=== PATIENT | female | born 1975 | race Caucasian/White ===

== ENCOUNTER 2016-03-05 16:02 | Emergency (ER) | payer SELFPAY ==
[~2016-03-05] VITALS: Ht 167.6 cm; Wt 104.0 kg
[2016-03-05 16:06] VITALS: Ht 167.6 cm; Wt 104.0 kg
[2016-03-05] MEDS ORDERED: HYDROCODONE/APAP (5/325) TAB PO ONE (16:30)
[2016-03-05 16:46] LABS: BASOPHIL # 0.1 10^3/ul (0.0-0.1); EOSINOPHILS # 0.2 10^3/ul (0.0-0.5); EOSINOPHILS % 2.7 % (0.0-7.0); HEMATOCRIT 28.5 % (37.0-47.0); LYMPHOCYTES # 1.9 10^3/ul (0.8-2.9); LYMPHOCYTES % 30.8 % (15.0-51.0); MEAN CORPUSCULAR HEMOGLOBIN 21.3 pg (29.0-33.0); MEAN CORPUSCULAR HGB CONC 31.4 g/dl (32.0-37.0); MEAN CORPUSCULAR VOLUME 67.8 fl (82.0-101.0); MEAN PLATELET VOLUME 9.1 fl (7.4-10.4); MONOCYTE # 0.8 10^3/ul (0.3-0.9); MONOCYTES % 13.2 % (0.0-11.0); NEUTROPHIL # 3.3 10^3/ul (1.6-7.5); NEUTROPHILS % 52.3 % (39.0-77.0); PLATELET COUNT 301 10^3/UL (140-440); RED BLOOD COUNT 4.21 10^6/ul (4.20-5.40); RED CELL DISTRIBUTION WIDTH 17.7 % (11.5-14.5); UNCORRECTED WBC 6.3 10^3/ul (4.8-10.8); WHITE BLOOD COUNT 6.3 10^3/ul (4.8-10.8)
[2016-03-05 16:52] LABS: CONDITION 1; LH ANALYZER COMMENTS 1
[2016-03-05 16:54] LABS: CHLORIDE 106 mmol/L (97-110); SODIUM 143 mmol/L (135-144)
[2016-03-05 16:55] LABS: POTASSIUM 4.1 mmol/L (3.5-5.1)
[2016-03-05 16:57] LABS: ALANINE AMINOTRANSFERASE 37 IU/L (13-69); ALBUMIN/GLOBULIN RATIO 1.17; ALKALINE PHOSPHATASE 61 IU/L (42-121); ANION GAP 15 (8-16); ASPARTATE AMINO TRANSFERASE 23 IU/L (15-46); BLOOD UREA NITROGEN 14 mg/dl (7-20); CALCIUM 8.6 mg/dl (8.4-10.2); CARBON DIOXIDE 26 mmol/L (21-31); CREATININE 0.71 mg/dl (0.44-1.00); GLUCOSE 77 mg/dl (70-220); TOTAL PROTEIN 7.4 g/dl (6.1-8.1)
--- NOTE | 2016-03-05 17:16 | ERD ---
ER Documentation Chief Complaint Date/Time DATE: 03/05/16 TIME: 17:15 Chief Complaint mild sob for the past 3 days. mild abd pain and gen body itching no rash HPI 40-year-old female otherwise healthy comes to the ER with right upper quadrant abdominal pain as well as shortness of breath. She states her right upper quadrant pain started, she 3 days ago, then she started to have shortness of breath. Abdominal pain is nonradiating, achy, localized to the right upper quadrant. She has not had any fever, chills, nausea, vomiting or diarrhea. ROS All systems reviewed and are negative except as per history of present illness. PMhx/Soc Medical and Surgical Hx: pt denies Medical Hx, pt denies Surgical Hx Hx Alcohol Use: Yes Hx Substance Use: Yes Hx Tobacco Use: Yes Smoking Status: Never smoker Physical Exam Vitals Vital Signs Date Time Temp Pulse Resp B/P Pulse Ox O2 Delivery O2 Flow Rate FiO2 03/05/16 16:06 98.2 95 20 172/59 99 Physical Exam General: Well-developed, well-nourished. The patient appears in no acute distress. HEENT: Head is normocephalic, atraumatic. No scleral icterus. Neck: Supple. Nontender. Lungs: Clear to auscultation. Normal air movement. Heart: Regular rate and rhythm. S1 and S2 are normal. No murmurs, gallops, or rubs. Abdomen: Soft, tender in right upper nondistended. Bowel sounds are normoactive. No guarding, peritoneal signs, no masses. Extremities: No clubbing or cyanosis. Normal pulses. Moving extremities x 4. No weakness. Neurologic: Alert and oriented 3. No focal deficits. Skin: Normal turgor. No rash or lesions. Result Diagram: 03/05/16 1630 03/05/16 1630 Results 24 hrs Laboratory Tests Test 03/05/16 16:30 03/05/16 16:45 Alanine Aminotransferase (ALT/SGPT) 37IU/L Albumin 4.0g/dl Albumin/Globulin Ratio 1.17 Alkaline Phosphatase 61IU/L Anion Gap 15 Aspartate Amino Transf (AST/SGOT) 23IU/L Basophils # 0.110^3/ul Basophils % 1.0% Blood Morphology Comment Blood Urea Nitrogen 14mg/dl Calcium Level 8.6mg/dl Carbon Dioxide Level 26mmol/L Chloride Level 106mmol/L Creatinine 0.71mg/dl Direct Bilirubin 0.00mg/dl Eosinophils # 0.210^3/ul Eosinophils % 2.7% Globulin 3.40g/dl Glucose Level 77mg/dl Hematocrit 28.5% Hemoglobin 9.0g/dl Indirect Bilirubin 0.0mg/dl Lipase 109U/L Lymphocytes # 1.910^3/ul Lymphocytes % 30.8% Mean Corpuscular Hemoglobin 21.3pg Mean Corpuscular Hemoglobin Concent 31.4g/dl Mean Corpuscular Volume 67.8fl Mean Platelet Volume 9.1fl Monocytes # 0.810^3/ul Monocytes % 13.2% Neutrophils # 3.310^3/ul Neutrophils % 52.3% Nucleated Red Blood Cells # 0.010^3/ul Nucleated Red Blood Cells % 0.0/100WBC Platelet Count 21153^3/UL Potassium Level 4.1mmol/L Red Blood Count 4.2110^6/ul Red Cell Distribution Width 17.7% Sodium Level 143mmol/L Total Bilirubin 0.0mg/dl Total Protein 7.4g/dl Troponin I < 0.012ng/ml White Blood Count 6.310^3/ul Urine Bilirubin NEGATIVE Urine Clarity CLEAR Urine Color LT. YELLOW Urine Glucose NEGATIVE% Urine Hemoglobin NEGATIVE Urine Ketones NEGATIVE Urine Leukocyte Esterase NEGATIVE Urine Nitrite NEGATIVE Urine Specific [place] 1.020 Urine Total Protein NEGATIVE Urine Urobilinogen 1.0 E.U./dL Urine pH 7.0 Current Medications Medications (Trade) Dose Ordered Sig/Rebekah Route PRN Reason Start Time Stop Time Status Last Admin Dose Admin Acetaminophen/ Hydrocodone Bitart ([place] (5/325)) 1 tab ONCE ONCE PO 03/05/16 16:30 03/05/16 17:32 DC 03/05/16 16:46 PROCEDURE: XR Chest. CLINICAL INDICATION: Shortness of breath. TECHNIQUE: Single frontal chest x-ray. COMPARISON: None available FINDINGS: The lungs are clear. No focal opacification is seen. No pneumothorax or pleural effusion is seen. The cardiomediastinal silhouette is unremarkable. The osseous structures are grossly unremarkable. IMPRESSION: No evidence of acute cardiopulmonary disease. RPTAT: TT .Uri Bobby MD, MD Date Time Electronically viewed and signed by .Uri Bobby MD, MD on 03/05/2016 17:44 .A/ CC: YOVANY THEODORE PA-C PROCEDURE: US Abdomen (right upper quadrant). CLINICAL INDICATION: Right upper quadrant abdomen pain. TECHNIQUE: Multiple real-time longitudinal and transverse images of the right upper quadrant of the abdomen were acquired utilizing a curved array transducer. Images were reviewed on a high-resolution PACS workstation. COMPARISON: None FINDINGS: The liver is normal in size and echogenicity. There is no focal hepatic lesion. Color Doppler and pulsed Doppler sonography demonstrate normal antegrade flow in the portal vein. The gallbladder is contracted but otherwise normal with no stones visualized. There is no pericholecystic fluid collection. The bile ducts are normal with the common bile duct measuring 2.0 mm in diameter. The visualized portions of the pancreas are unremarkable with obscuration of the tail of the pancreas. No free fluid is present. The right kidney measures 10.5 x 4.8 x 6.7 cm. There is normal echogenicity of the right kidney. There is no perinephric fluid collection. No hydronephrosis, mass, or calculus is seen. IMPRESSION: 1. Contracted gallbladder. 2. Otherwise normal right upper quadrant abdomen ultrasound. RPTAT: QQ .Enrique Mendes MD, MD Date Time Electronically viewed and signed by .Enrique Mendes MD, on 03/05/2016 17:25 .R/ Procedures/MDM EKG: Reviewed by Dr. Catalan Rate/Rhythm: Normal Sinus Rhythm QRS, ST, T-waves: No changes consistent w/ acute ischemia Impression: No evidence of ischemia or arrhythmia Patient was medicated with [place] 325/5 mg for pain. PERC Criteria Assessment: Age > 50: No HR > 100: No 02 < 95%: No H/o DVT/PE: No Recent trauma/surgery: No Hemoptysis: No Exogenous Estrogen: No Unilateral Leg swelling: No Pretest probability > 15%: No Less than 2% risk of PE. No further work up is necessary MDM: 40-year-old female comes in with shortness breath, right upper quadrant abdominal pain. Patient's workup included labs, urine EKG, as well as advanced imaging. There is no evidence of leukocytosis,lites are normal, no evidence of pancreatitis and urine was negative for infection. I'll let her ultrasound showed a contracted gallbladder, otherwise normal. Chest x-ray is also performed given that she had right upper quadrant abdominal pain, there is no evidence of pneumonia, pneumothorax or any masses. She was given [place] in emergency Department she states that her symptoms have improved. I discussed that she has a low risk for pulmonary embolus, less than 2% given that she has perked negative, I did offer CT pulmonary angiogram, she agrees that the risk would likely outweigh the benefits. Patient does admit to having some anxiety symptoms at home, she does not take anything for this, I also did offer something for anxiety but she states that she feels comfortable leaving home with pain medication. Patient's hemoglobin was 9.0, she is aware that she has a history of anemia, she does take iron, I have advised her to take it 4 times a day, also to follow-up with a sales coach given her history of heavy menstruation. Differentials include acute probability process, hepatitis, pancreatitis, appendicitis, UTI, pyelonephritis, acute corner syndrome component embolus, dissection, pneumothorax, pneumonia and among others. She is feeling much better at this time, I do believe the patient is appropriate to be discharged, she was advised to follow up with her primary care physician. Departure Diagnosis: Primary Impression: Abdominal pain Condition: YOVANY Godinez PA-C Mar 05, 2016 17:16
[2016-03-05 17:18] LABS: TROPONIN-I < 0.012 ng/ml (0.00-0.12)
--- NOTE | 2016-03-05 17:25 | RADRPT ---
PROCEDURE: US Abdomen (right upper quadrant). CLINICAL INDICATION: Right upper quadrant abdomen pain. TECHNIQUE: Multiple real-time longitudinal and transverse images of the right upper quadrant of th e abdomen were acquired utilizing a curved array transducer. Images were reviewed on a high-resoluti on PACS workstation. COMPARISON: None FINDINGS: The liver is normal in size and echogenicity. There is no focal hepatic lesion. Color Doppler and pulsed Doppler sonography demonstrate normal a ntegrade flow in the portal vein. The gallbladder is contracted but otherwise normal with no stones visualized. There is no perichole cystic fluid collection. The bile ducts are normal with the common bile duct measuring 2.0 mm in diameter. The visualized portions of the pancreas are unremarkable with obscuration of the tail of the pancrea s. No free fluid is present. The right kidney measures 10.5 x 4.8 x 6.7 cm. There is normal echogenicity of the right kidney. There is no perinephric fluid collection. No hydronephrosis, mass, or calculus is seen. IMPRESSION: 1. Contracted gallbladder. 2. Otherwise normal right upper quadrant abdomen ultrasound. RPTAT: QQ .Enrique Mendes MD, Date Time Electronically viewed and signed by .Enrique Mendes MD, on 03/05/2016 17:25 .R/
[2016-03-05 17:36] LABS: ADD UMIC NO; URINE BILIRUBIN (Dip) NEGATIVE (NEGATIVE); URINE BLOOD (Dip) NEGATIVE (NEGATIVE); URINE COLOR LT. YELLOW (YELLOW); URINE GLUCOSE (Dip) NEGATIVE (NEGATIVE); URINE KETONES (Dip) NEGATIVE (NEGATIVE); URINE LEUKOCYTE ESTERASE (Dip) NEGATIVE (NEGATIVE); URINE NITRITE (Dip) NEGATIVE (NEGATIVE); URINE TOTAL PROTEIN (Dip) NEGATIVE (NEGATIVE); URINE UROBILINOGEN (Dip) 1.0 E.U./dL (0.1-1.0)
--- NOTE | 2016-03-05 17:44 | RADRPT ---
PROCEDURE: XR Chest. CLINICAL INDICATION: Shortness of breath. TECHNIQUE: Single frontal chest x-ray. COMPARISON: None available FINDINGS: The lungs are clear. No focal opacification is seen. No pneumothorax or pleural effusion is seen. The cardiomediastinal silhouette is unremarkable. The osseous structures are grossly unremarkable. IMPRESSION: No evidence of acute cardiopulmonary disease. RPTAT: TT .Uri Bobby MD, MD Date Time Electronically viewed and signed by .Uri Bobby MD, on 03/05/2016 17:44 .A/
[2016-03-05] MEDS ORDERED: HYDR-906 PO (18:02)
== END 2016-03-05 18:05 | disposition home or self-care (01) ==
LOC: FTE 16:02
DX: R10.11 Right upper quadrant pain (principal)
CPT/HCPCS: 71010; 76705; 80053; 81003; 83690; 84484; 85025; 93005

== ENCOUNTER 2016-05-25 14:26 | Emergency (ER) | payer BC, MEDICAID ==
[~2016-05-25] VITALS: Ht 165.1 cm; Wt 103.0 kg
[~2016-05-25 14:26] MED LIST: HYDR-906 PO
[2016-05-25 14:28] VITALS: Ht 165.1 cm; Wt 103.0 kg
[2016-05-25] MEDS ORDERED: NITR-58 PO (15:13)
[2016-05-25] MEDS ORDERED: PHEN-538 PO (15:13)
[2016-05-25] MEDS ORDERED: SILV20CR14 TOP (15:13)
[2016-05-25] MEDS ORDERED: PHENAZOPYRIDINE 100 MG TAB PO ONE (16:00)
--- NOTE | 2016-05-25 16:45 | ERD ---
ER Documentation Chief Complaint Date/Time DATE: 05/25/16 TIME: 16:44 Chief Complaint painful urination , vaginal discahrge x 1 day HPI Patient is a 41-year-old female with no medical problems who presents with pain with urination. She has had the symptoms for 1 day. The patient had her period a few days ago. She denies being . She said that she has had some discharge from her vagina. She was feeling a headache. She denies any fevers. She has had no treatment as of yet. She does not know the name of her primary doctor. ROS All systems reviewed and are negative except as per history of present illness. Medications Home Meds Active Scripts Silver Sulfadiazine* (Silvadene*) 1% - 20 Gm Cream.gm., 1 APPLIC TOP DAILY, #1 TUB Prov:LINDA FRANKLIN MD 05/25/16 Phenazopyridine Hcl* (Pyridium*) 200 Mg Tab, 200 MG PO TID Y for URINARY PAIN, # 6 TAB Prov:LINDA FRANKLIN MD 05/25/16 Nitrofurantoin Monohyd Macrocr* (Macrobid*) 100 Mg Capsr, 100 MG PO BID for 7 Days, CAP Prov:LINDA FRANKLIN MD 05/25/16 Hydrocodone/Acetaminophen ([place] 5-325 Tablet) 1 Each Tablet, 1 TAB PO Q6H Y for PAIN, #15 TAB Prov:YOVANY THEODORE PA-C 03/05/16 Allergies Allergies: Coded Allergies: No Known Allergy (Unverified , 05/25/16) PMhx/Soc Medical and Surgical Hx: pt denies Medical Hx, pt denies Surgical Hx Hx Alcohol Use: Yes Hx Substance Use: No Hx Tobacco Use: Yes Smoking Status: Current every day smoker FmHx Family History: diabetes Physical Exam Vitals Vital Signs Date Time Temp Pulse Resp B/P Pulse Ox O2 Delivery O2 Flow Rate FiO2 05/25/16 14:28 98.1 84 18 119/67 99 Physical Exam Const: No acute distress Head: Atraumatic Eyes: Normal Conjunctiva ENT: Normal External Ears, Nose and Mouth. Neck: Full range of motion..~ No meningismus. Resp: Clear to auscultation bilaterally Cardio: Regular rate and rhythm, no murmurs Abd: Soft, pain over the bladder, no rebound or guarding Skin: No petechiae or rashes Back: No midline or flank tenderness Ext: No cyanosis, or edema Neur: Awake and alert Psych: Normal Mood and Affect Results 24 hrs Current Medications Medications (Trade) Dose Ordered Sig/Rebekah Route PRN Reason Start Time Stop Time Status Last Admin Dose Admin Phenazopyridine HCl (Pyridium) 200 mg ONCE ONCE PO 05/25/16 16:00 05/25/16 16:01 DC 05/25/16 15:57 Procedures/MDM Patient is a 41-year-old female with no medical problems who presents with what appears to be an acute cystitis. Her symptoms are consistent with acute cystitis. I believe outpatient management is appropriate. The patient will be given Macrobid and Pyridium. She can follow-up with her primary doctor within 24-48 hours. She will return for any worsening symptoms. At this point I do not believe she needs further workup or admission the hospital at this time. I doubt appendicitis, cholecystitis, pancreatitis, or bowel obstruction. Departure Diagnosis: Primary Impression: Cystitis Additional Impression: Dysuria Condition: Fair Patient Instructions: Dysuria, Cystitis Ref[facility]: [facility] Arpita se fitzgerald hecho un examen mdico de control que le indica que no est en mildred condicin que requiera tratamiento urgente en el Departamento de Emergencia. Un estudio ms profundo y el tratamiento de fatima condicin pueden esperar sin ningn riesgo hasta que usted sea atendida/o en el consultorio de fatima mdico o mildred cl shelley. Es responsabilidad suya arreglar mildred zaida para el seguimiento del cindy. MANEJO DE CONDICIONES NO URGENTES EN EL FUTURO 1) Si usted tiene un mdico de atencin primaria: Usted debera llamar a fatima mdico de atencin primaria antes de venir al departamento de emergencia. Despus de las horas de consultorio, fatima doctor o fatima asociado/a est disponible por telfono. El mdico o enfermero de nikki en el servicio telefnico puede asesorarle por wilfredo medio para atender el problema, o cindy contrario se puede programar mildred zaida. 2) Si usted no tiene un mdico de atencin primaria: Llame al mdico o clnica de referencia que aparece abajo autumn las horas de consultorio para hacer mildred zaida para que le vean. CLINICAS: [facility] [id number] [facility] [phone] [facility] [phone] [place] [id number] [phone] [place] [id number] [phone] [facility] [phone] [address] Additional Instructions: Llame al doctor MAANA y bethany mildred ZAIDA PARA DENTRO DE 1-2 THAYER.Dgale a la secretaria que nosotros le instruimos hacer esta zaida.Avise o llame si fatima condicin se empeora antes de la zaida. Regresa aqui si peor o no mejor. LINDA FRANKLIN MD May 25, 2016 16:45
== END 2016-05-25 16:02 | disposition home or self-care (01) ==
LOC: FTE 14:26
DX: N30.00 Acute cystitis without hematuria (principal); R30.0 Dysuria; F17.210 Nicotine dependence, cigarettes, uncomplicated
CPT/HCPCS: Z7502; Z7610; 99284

== ENCOUNTER 2016-05-31 13:12 | Emergency (ER) | payer BC, MEDICAID ==
[~2016-05-31] VITALS: Ht 160 cm; Wt 100.0 kg
[~2016-05-31 13:12] MED LIST changes: +NITR-58 PO; +PHEN-538 PO; +SILV20CR14 TOP
[2016-05-31 13:15] VITALS: Ht 160 cm; Wt 100.0 kg
[2016-05-31] MEDS ORDERED: HYDROCODONE/APAP (5/325) TAB PO ONE (15:30)
[2016-05-31 16:20] LABS: ADD UMIC YES; URINE BILIRUBIN (Dip) NEGATIVE (NEGATIVE); URINE BLOOD (Dip) NEGATIVE (NEGATIVE); URINE COLOR LT. YELLOW (YELLOW); URINE GLUCOSE (Dip) NEGATIVE (NEGATIVE); URINE KETONES (Dip) NEGATIVE (NEGATIVE); URINE LEUKOCYTE ESTERASE (Dip) TRACE (NEGATIVE); URINE NITRITE (Dip) NEGATIVE (NEGATIVE); URINE TOTAL PROTEIN (Dip) NEGATIVE (NEGATIVE); URINE UROBILINOGEN (Dip) 0.2 E.U./dL (0.1-1.0)
--- NOTE | 2016-05-31 16:22 | RADRPT ---
PROCEDURE: US Pelvis CLINICAL INDICATION: pelvic pain TECHNIQUE: Multiple sonographic images of the pelvis were obtained utilizing a transabdominal and endovaginal technique. The images were reviewed on a PACS workstation. COMPARISON: None. LMP: 05/18/2016 FINDINGS: The uterus measures 11.5 x 6.0 x 7.4 cm. The endometrial echo complex is heterogeneous and measures 28 mm in thickness. No foci of abnormal vascular flow are noted in the endometrium. Several sub-c entimeter Nabothian cysts are identified. There is a 1.7 cm posterior intramural uterine fibroid at the level of the mid body. There is a 1.4 cm anterior intramural uterine fibroid at the level of the mid body. The right ovary measures 3.1 x 1.9 x 2.8 cm. The left ovary measures 3.9 x 2.2 x 1.7 cm. There is no rmal vascular flow in the right ovary although only minimal flow is noted in the left ovary on Doppl er. There is a heterogeneous lesion either projecting from the right ovary or immediately adjacent to a which measures up to 3.3 cm. Vascular flow is noted within it as well as prominent cystic spaces an d posterior acoustic enhancement. No significant pelvic free fluid is identified. IMPRESSION: Heterogeneous complex cystic and solid lesion in the right adnexa is nonspecific and may be a dermoi d cyst or other ovarian tumor. The possibility that this lesion represents an endometrioma is consi dered less likely given the presence of vascular flow within it. Follow-up ultrasound in 6-12 weeks is recommended for further evaluation. If the lesion persists, consider further evaluation with an M RI of the pelvis without and with intravenous contrast. Marked heterogeneity and thickening of the endometrium to 28 mm. Correlation with a beta HCG level is recommended to evaluate for early . Thickening of the endometrium may also be secondary to hormone conduction with an ovarian lesion given the complex cystic and solid lesion identified in the right adnexa. This finding can be reevaluated on follow-up ultrasound. 2 intramural uterine fibroids are identified measuring up to 1.7 cm. RPTAT: EE Physician Nestor Date Time Electronically viewed and signed by Vipin Beck Physician on 05/31/2016 16:22 RA/
[2016-05-31 16:27] LABS: ADD SCAN DIFF NO
[2016-05-31 16:30] LABS: BASOPHIL # 0.1 10^3/ul (0.0-0.1); BASOPHILS % 1.1 % (0.0-2.0); EOSINOPHILS # 0.1 10^3/ul (0.0-0.5); EOSINOPHILS % 1.7 % (0.0-7.0); HEMATOCRIT 33.3 % (37.0-47.0); LYMPHOCYTES % 30.4 % (15.0-51.0); MEAN CORPUSCULAR HEMOGLOBIN 21.9 pg (29.0-33.0); MEAN CORPUSCULAR VOLUME 72.9 fl (82.0-101.0); MONOCYTE # 0.6 10^3/ul (0.3-0.9); MONOCYTES % 9.9 % (0.0-11.0); NEUTROPHIL # 3.7 10^3/ul (1.6-7.5); NEUTROPHILS % 56.6 % (39.0-77.0); PLATELET COUNT 338 10^3/UL (140-415); RED BLOOD COUNT 4.57 10^6/ul (4.20-5.40); RED CELL DISTRIBUTION WIDTH 18.1 % (11.5-14.5); WHITE BLOOD COUNT 6.5 10^3/ul (4.8-10.8)
[2016-05-31 16:41] LABS: BACTERIA,URINE FEW; MUCUS,URINE FEW; URINE RBCS 0-2 /HPF (0)
[2016-05-31 16:43] LABS: ALBUMIN 4.4 g/dl (3.3-4.9); POTASSIUM 4.1 mmol/L (3.5-5.1)
[2016-05-31 16:46] LABS: ALBUMIN/GLOBULIN RATIO 1.29; CALCIUM 9.3 mg/dl (8.4-10.2); CREATININE 0.58 mg/dl (0.44-1.00); TOTAL PROTEIN 7.8 g/dl (6.1-8.1)
--- NOTE | 2016-05-31 18:27 | RADRPT ---
PROCEDURE: CT abdomen and pelvis without intravenous contrast. CLINICAL INDICATION: Left lower quadrant pain. TECHNIQUE: CT of the abdomen/pelvis was performed utilizing axial images with reconstructions in s agittal and coronal planes. The administered radiation dose is CTDI 21.74 mGy, DLP 1211.85 mGy-cm. O ne or more of the following dose reduction techniques were used: Automated exposure control, Adjustm ent of the mA and/or kV according to patient size, or Use of iterative reconstruction technique. COMPARISON: There are no similar studies submitted for comparison. FINDINGS: Lung bases: There are partially visualized apparent breast implants. There is minimal bibasilar ate lectasis/scarring. The heart is normal size without pericardial effusion. CT ABDOMEN: Evaluation of the abdominal viscera is limited without intravenous contrast. Gastrointestinal tract: There is no bowel obstruction.The appendix is normal size without inflammato ry changes.No abnormal colonic wall thickening is identified.There is no pneumoperitoneum. Liver: The liver is normal in size.There is no intrahepatic ductal dilatation. Gallbladder: The gallbladder is grossly unremarkable. Pancreas: The pancreas is grossly unremarkable. Spleen: The spleen is normal in size. Kidneys: The kidneys are normal in size and contour.No renal calculi identified.There is no evidence of hydronephrosis. Adrenal glands: The bilateral adrenal glands are unremarkable. Retroperitoneum: There is no retroperitoneal adenopathy.The aorta is normal in caliber. CT PELVIS: Pelvic organs: The uterus is present. There are para right ovarian cysts. Bladder: The bladder is unremarkable. There is no pelvic free fluid.No pelvic adenopathy is identified. Osseous structures: No destructive lytic or blastic osseous lesion is identified. There is severe di sk space narrowing at L5-S1 with moderate to severe left and moderate right foraminal stenosis. IMPRESSION: Evaluation of the abdominal viscera is limited without intravenous contrast. 1. No acute abdominal pathology. 2. Apparent right ovarian cysts. Ultrasound of the pelvis may be performed as clinically warranted . 3. Severe disk space narrowing at L5-S1 with bilateral foraminal stenosis. Further findings as detailed above. RPTAT: HVF .Werner Mcgovern MD, MD Date Time Electronically viewed and signed by .Werner Mcgovern MD, MD on 05/31/2016 18:26 .F/
[2016-05-31] MEDS ORDERED: NAPR-260 PO (18:49)
[2016-05-31] MEDS ORDERED: METR500T PO (18:49)
--- NOTE | 2016-05-31 19:08 | ERA ---
ER Documentation Chief Complaint Date/Time DATE: 05/31/16 TIME: 19:04 Chief Complaint PELVIC PAIN X 3 DAYS (DANITZA COPELAND) HPI This is a 41-year-old female presents to the ER with worsening pelvic pain over the last 3 days. Pelvic pain is severe and crampy in nature. It radiates throughout the right and left side. She states that she does have foul-smelling vaginal discharge. She denies any abnormal vaginal bleeding. She was seen here on May 25 treated for a possible urinary tract infection. She states that her dysuria has gotten better, however pelvic pain started on Tuesday. Patient has been trying ibuprofen for the pain however has not worked. Patient denies any fevers or chills. She denies any nausea vomiting or diarrhea. Patient is currently sexually active with her has spent and does not use condoms however she's never had a STD. Patient's last menstrual period was on 05/18/2016. A1. (DANITZA COPELAND) ROS 12 point review of systems was done, all negative except per HPI. (DANITZA COPELAND) Medications Home Meds Active Scripts Metronidazole* (Flagyl*) 500 Mg Tablet, 500 MG PO TID for 7 Days, TAB Prov:DANITZA COPELAND 05/31/16 Naproxen* (Naprosyn*) 500 Mg Tablet, 500 MG PO BID Y for PAIN AND/OR INFLAMMATION, #30 TAB Prov:DANITZA COPELAND 05/31/16 Nitrofurantoin Monohyd Macrocr* (Macrobid*) 100 Mg Capsr, 100 MG PO BID for 7 Days, CAP Prov:LINDA FRANKLIN MD 05/25/16 Reported Medications Omeprazole* (Omeprazole*) 10 Mg Capsule.dr, 10 MG PO DAILY, #30 CAP 05/31/16 Ibuprofen* (Ibuprofen*) 600 Mg Tablet, 600 MG PO Q6H Y for PAIN, TAB 05/31/16 Discontinued Scripts Silver Sulfadiazine* (Silvadene*) 1% - 20 Gm Cream.gm., 1 APPLIC TOP DAILY, #1 TUB Prov:LINDA FRANKLIN MD 05/25/16 Phenazopyridine Hcl* (Pyridium*) 200 Mg Tab, 200 MG PO TID Y for URINARY PAIN, # 6 TAB Prov:LINDA FRANKLIN MD 05/25/16 Hydrocodone/Acetaminophen ([place] 5-325 Tablet) 1 Each Tablet, 1 TAB PO Q6H Y for PAIN, #15 TAB Prov:YOVANY THEODORE PA-C 03/05/16 Allergies Allergies: Coded Allergies: No Known Allergy (Unverified , 05/31/16) PMhx/Soc Medical and Surgical Hx: pt denies Medical Hx, pt denies Surgical Hx Hx Alcohol Use: Yes Hx Substance Use: No Hx Tobacco Use: Yes Smoking Status: Current every day smoker (DANITZA COPELAND) Physical Exam Vitals Vital Signs Date Time Temp Pulse Resp B/P Pulse Ox O2 Delivery O2 Flow Rate FiO2 05/31/16 13:15 908.2 95 20 123/73 99 (YANELY MAJOR DO) Physical Exam GENERAL: The patient is well developed and appropriate for usual state of health , in no apparent distress. HEENT: Atraumatic. Conjunctivae are pink. Pupils equal, round, and reactive to light. Extraocular muscles are grossly intact. Bilateral tympanic membranes are clear with no evidence of erythema, effusion or dulling of the light reflex. The oropharynx is clear with no erythema or exudates. NECK: C-spine is soft and supple. There is no cervical lymphadenopathy. CHEST: Clear to auscultation bilaterally. There are no rales, wheezes or rhonchi. HEART: Regular rate and rhythm. No murmurs, clicks, rubs or gallops. ABDOMEN: Patient is tender to palpation along the pelvic area. Good bowel sounds. No rebound or guarding. No gross peritonitis. No gross organomegaly or masses. No Chung sign or McBurney point tenderness. BACK: No midline or flank tenderness. : There is foul-smelling discharge coming from the vagina, no external lesions masses or sores. She does have some cervical motion tenderness. Negative chandelier sign. NEURO: Alert and oriented. (DANITZA COPELAND) Result Diagram: 05/31/16 1601 05/31/16 1601 Results 24 hrs Laboratory Tests Test 05/31/16 16:00 05/31/16 16:01 Urine Color LT. YELLOW Urine Clarity CLEAR Urine pH 6.0 Urine Specific [place] 1.025 Urine Ketones NEGATIVE Urine Nitrite NEGATIVE Urine Bilirubin NEGATIVE Urine Urobilinogen 0.2 E.U./dL Urine Leukocyte Esterase TRACE Urine Microscopic RBC 0-2/HPF Urine Microscopic WBC 2-5/HPF Urine Epithelial Cells FEW Urine Bacteria FEW Urine Mucus FEW Urine Hemoglobin NEGATIVE Urine Glucose NEGATIVE% Urine Total Protein NEGATIVE Serum HCG, Qualitative NEGATIVE White Blood Count 6.510^3/ul Red Blood Count 4.5710^6/ul Hemoglobin 10.0g/dl Hematocrit 33.3% Mean Corpuscular Volume 72.9fl Mean Corpuscular Hemoglobin 21.9pg Mean Corpuscular Hemoglobin Concent 30.0g/dl Red Cell Distribution Width 18.1% Platelet Count 63933^3/UL Mean Platelet Volume 11.0fl Neutrophils % 56.6% Lymphocytes % 30.4% Monocytes % 9.9% Eosinophils % 1.7% Basophils % 1.1% Nucleated Red Blood Cells % 0.0/100WBC Neutrophils # 3.710^3/ul Lymphocytes # 2.010^3/ul Monocytes # 0.610^3/ul Eosinophils # 0.110^3/ul Basophils # 0.110^3/ul Nucleated Red Blood Cells # 0.010^3/ul Sodium Level 142mmol/L Potassium Level 4.1mmol/L Chloride Level 106mmol/L Carbon Dioxide Level 25mmol/L Anion Gap 15 Blood Urea Nitrogen 9mg/dl Creatinine 0.58mg/dl Glucose Level 89mg/dl Calcium Level 9.3mg/dl Total Bilirubin 0.0mg/dl Direct Bilirubin 0.00mg/dl Indirect Bilirubin 0.0mg/dl Aspartate Amino Transf (AST/SGOT) 36IU/L Alanine Aminotransferase (ALT/SGPT) 46IU/L Alkaline Phosphatase 66IU/L Total Protein 7.8g/dl Albumin 4.4g/dl Globulin 3.40g/dl Albumin/Globulin Ratio 1.29 Lipase 89U/L Current Medications Medications (Trade) Dose Ordered Sig/Rebekah Route PRN Reason Start Time Stop Time Status Last Admin Dose Admin Acetaminophen/ Hydrocodone Bitart ([place] (5/325)) 1 tab ONCE ONCE PO 05/31/16 15:30 05/31/16 15:31 DC 05/31/16 15:57 Morphine Sulfate (morphine) 6 mg ONCE ONCE IM 05/31/16 19:30 05/31/16 19:31 DC 05/31/16 19:21 Ondansetron HCl (Zofran Odt) 4 mg ONCE STAT ODT 05/31/16 19:09 05/31/16 19:10 DC 05/31/16 19:19 (YANELY MAJOR DO) Procedures/MDM This is a 41-year-old female presents to the ER with pelvic pain for the last 3 days. Patient does have a complex cyst or lesion. This is a dermoid cyst versus an ovarian tumor. On the findings of the ultrasound there is noted that there was minimal flow to the left ovary. I discussed this with my supervising physician Dr. Major. This case will be discussed with the laborIST is on-call. Patient may need admission pending laborists consultation. (DANITZA COPELAND) Possible intermittent vs. partial ovarian torsion secondary to pelvic mass. I called the radio board operator announcer food and nutrition professor who came to the emergency room to see the patient and offered emergent surgery. The patient preferred to sign out AMA to go to [facility] where all of her doctors are. After receiving word from her insurance carrier that they would only provide coverage if she stayed at [facility] for treatment of her unstable condition or was trasferred to the hospital she was capitated to she still wanted to leave and go to [facility]. I made it clear to her and her family that she would not be covered by insurance if she chose that course of action. She still felt more comfortable going to [facility]. Vital signs were stable at that time. (YANELY MAJOR DO) Departure Diagnosis: Primary Impression: Acute pain in female pelvis Condition: Stable Patient Instructions: Ovarian Cyst Additional Instructions: Llame al doctor RAQUEL y bethany mildred ZAIDA PARA DENTRO DE 1-2 THAYER.Dgale a la secretaria que nosotros le instruimos hacer esta zaida.Avise o llame si fatima condicin se empeora antes de la zaida. Regresa aqui si peor o no mejor. NECESITAS MAGNO UN GINECOLOGO URGENTEMENTE DANITZA COPELAND May 31, 2016 19:08 YANELY MAJOR DO Jun 03, 2016 11:43
[2016-05-31] MEDS ORDERED: ONDANSETRON (ODT) 4 MG TAB ODT STA (19:09)
[2016-05-31] MEDS ORDERED: morphine 10 MG INJ IM ONE (19:30)
[2016-05-31] MEDS ORDERED: OMEP10CA4 PO (20:57)
[2016-05-31] MEDS ORDERED: IBUP-1542 PO (20:57)
== END 2016-05-31 23:14 | disposition left against medical advice (07) ==
LOC: FTE 13:12 → E/R 23:14
DX: R10.2 Pelvic and perineal pain (principal); F17.210 Nicotine dependence, cigarettes, uncomplicated
CPT/HCPCS: 74176; 76830; 76856; 80053; 81001; 83690; 84703; 85025; 96372; J2270; Z7502; Z7610; 81003

== ENCOUNTER 2016-08-07 09:24 | Emergency (ER) | payer MEDICAID, OTHER ==
[~2016-08-07] VITALS: Ht 167.6 cm; Wt 101.5 kg
[~2016-08-07 09:24] MED LIST changes: -HYDR-906 PO; +IBUP-1542 PO; +METR500T PO; +NAPR-260 PO; +OMEP10CA4 PO; -PHEN-538 PO; -SILV20CR14 TOP
[2016-08-07 09:40] VITALS: Ht 167.6 cm; Wt 101.5 kg
[2016-08-07] MEDS ORDERED: ONDANSETRON 4 MG INJ IV STA (09:47)
[2016-08-07] MEDS ORDERED: SOD CHLORIDE 0.9% 1,000 ML IV STA (09:47)
[2016-08-07] MEDS ORDERED: KETOROLAC 30 MG INJ IV STA (09:47)
[2016-08-07 10:19] LABS: ADD SCAN DIFF NO
[2016-08-07 10:21] LABS: BASOPHILS % 0.6 % (0.0-2.0); EOSINOPHILS # 0.1 10^3/ul (0.0-0.5); EOSINOPHILS % 1.3 % (0.0-7.0); HEMATOCRIT 33.2 % (37.0-47.0); HEMOGLOBIN 9.9 g/dl (12.0-16.0); LYMPHOCYTES # 1.5 10^3/ul (0.8-2.9); LYMPHOCYTES % 30.5 % (15.0-51.0); MEAN CORPUSCULAR HEMOGLOBIN 21.7 pg (29.0-33.0); MEAN CORPUSCULAR HGB CONC 29.8 g/dl (32.0-37.0); MEAN CORPUSCULAR VOLUME 72.8 fl (82.0-101.0); MEAN PLATELET VOLUME 11.6 fl (7.4-10.4); MONOCYTE # 0.5 10^3/ul (0.3-0.9); MONOCYTES % 10.3 % (0.0-11.0); NEUTROPHIL # 2.7 10^3/ul (1.6-7.5); NEUTROPHILS % 57.1 % (39.0-77.0); PLATELET COUNT 275 10^3/UL (140-415); RED BLOOD COUNT 4.56 10^6/ul (4.20-5.40); RED CELL DISTRIBUTION WIDTH 18.3 % (11.5-14.5); WHITE BLOOD COUNT 4.8 10^3/ul (4.8-10.8)
[2016-08-07 10:34] LABS: ADD UMIC YES; UR ASCORBIC ACID NEGATIVE (NEGATIVE); UR BILIRUBIN (Dip) NEGATIVE (NEGATIVE); UR BLOOD (Dip) 1+ mg/dL (NEGATIVE); UR CLARITY CLEAR (CLEAR); UR COLOR YELLOW (YELLOW); UR GLUCOSE (Dip) NEGATIVE (NEGATIVE); UR KETONES (Dip) NEGATIVE (NEGATIVE); UR LEUKOCYTE ESTERASE (Dip) 1+ Leu/ul (NEGATIVE); UR MUCUS FEW /HPF (NONE SEEN); UR NITRITE (Dip) NEGATIVE (NEGATIVE); UR RBC 2 /HPF (0-5); UR SPECIFIC GRAVITY (Dip) 1.024 (1.003-1.030); UR SQUAMOUS EPITHELIAL CELL FEW /HPF (FEW); UR TOTAL PROTEIN (Dip) NEGATIVE (NEGATIVE); UR UROBILINOGEN (Dip) NEGATIVE (NEGATIVE)
[2016-08-07 11:03] VITALS: BP 91/55; PULSE 71; RESP 18; TEMP 98.3
[2016-08-07 11:21] LABS: ALBUMIN 4.7 g/dl (3.3-4.9); ALBUMIN/GLOBULIN RATIO 1.8; BILIRUBIN,INDIRECT 0.1 mg/dl (0-1.1); BILIRUBIN,TOTAL 0.1 mg/dl (0.2-1.3); CALCIUM 8.4 mg/dl (8.4-10.2); CREATININE 0.64 mg/dl (0.44-1.00); POTASSIUM 3.7 mmol/L (3.5-5.1); TOTAL PROTEIN 7.3 g/dl (6.1-8.1)
[2016-08-07] MEDS ORDERED: traMADol 50 MG TAB PO ONE (11:30)
[2016-08-07] MEDS ORDERED: ACET1TAB40 PO (12:29)
[2016-08-07] MEDS ORDERED: ONDA8TAB14 PO (12:29)
--- NOTE | 2016-08-07 12:35 | ERD ---
ER Documentation Chief Complaint Date/Time DATE: 08/07/16 TIME: 12:32 Chief Complaint fitzgerald with n/v x 4 days; HPI This 5-year-old female presents with vomiting and diarrhea for last 4 days. The vomit is nonbilious nonbloody and the diarrhea has no blood or mucus. She denies fevers. She also has a left-sided headache. She denies any sick contacts or suspect food or foreign travel. She denies abdominal pain or urinary complaints. Patient has a history of heavy menstrual periods and is taking iron for anemia. ROS All systems reviewed and are negative except as per history of present illness. Medications Home Meds Active Scripts Acetaminophen with Codeine (Acetaminophen-Cod #3 Tablet) 1 Each Tablet, 1 TAB PO Q6H Y for PAIN, #12 TAB Prov:SKINNY HERNANDEZ MD 08/07/16 Ondansetron (Ondansetron Odt) 8 Mg Tab.rapdis, 8 MG PO Q6H Y for NAUSEA AND/OR VOMITING, #8 TAB Prov:SKINNY HERNANDEZ MD 08/07/16 Metronidazole* (Flagyl*) 500 Mg Tablet, 500 MG PO TID for 7 Days, TAB Prov:DANITZA COPELAND 05/31/16 Naproxen* (Naprosyn*) 500 Mg Tablet, 500 MG PO BID Y for PAIN AND/OR INFLAMMATION, #30 TAB Prov:DANITZA COPELAND 05/31/16 Nitrofurantoin Monohyd Macrocr* (Macrobid*) 100 Mg Capsr, 100 MG PO BID for 7 Days, CAP Prov:LINDA FRANKLIN MD 05/25/16 Reported Medications Omeprazole* (Omeprazole*) 10 Mg Capsule.dr, 10 MG PO DAILY, #30 CAP 05/31/16 Ibuprofen* (Ibuprofen*) 600 Mg Tablet, 600 MG PO Q6H Y for PAIN, TAB 05/31/16 Allergies Allergies: Coded Allergies: No Known Allergy (Unverified , 08/07/16) PMhx/Soc Medical and Surgical Hx: pt denies Medical Hx, pt denies Surgical Hx Hx Alcohol Use: Yes (social) Hx Substance Use: No Hx Tobacco Use: No Smoking Status: Never smoker Physical Exam Vitals Vital Signs Date Time Temp Pulse Resp B/P Pulse Ox O2 Delivery O2 Flow Rate FiO2 08/07/16 11:03 98.3 71 18 91/55 100 Room Air 08/07/16 09:40 98.6 86 18 123/64 97 Physical Exam Const: [] Alert, [id number] per Head: Atraumatic Eyes: Normal Conjunctiva ENT: Normal External Ears, Nose and Mouth. Neck: Full range of motion..~ No meningismus. Resp: Clear to auscultation bilaterally Cardio: Regular rate and rhythm, no murmurs Abd: Soft, non tender, non distended. Normal bowel sounds Skin: No petechiae or rashes Back: No midline or flank tenderness Ext: No cyanosis, or edema Neur: Awake and alert. Cranial nerves II through XII grossly intact. Normal gait. No cerebellar signs Psych: Normal Mood and Affect Result Diagram: 08/07/1695808/07/1659 Results 24 hrs Laboratory Tests Test 08/07/16 09:59 White Blood Count 4.810^3/ul Red Blood Count 4.5610^6/ul Hemoglobin 9.9g/dl Hematocrit 33.2% Mean Corpuscular Volume 72.8fl Mean Corpuscular Hemoglobin 21.7pg Mean Corpuscular Hemoglobin Concent 29.8g/dl Red Cell Distribution Width 18.3% Platelet Count 69491^3/UL Mean Platelet Volume 11.6fl Neutrophils % 57.1% Lymphocytes % 30.5% Monocytes % 10.3% Eosinophils % 1.3% Basophils % 0.6% Nucleated Red Blood Cells % 0.0/100WBC Neutrophils # 2.710^3/ul Lymphocytes # 1.510^3/ul Monocytes # 0.510^3/ul Eosinophils # 0.110^3/ul Basophils # 0.010^3/ul Nucleated Red Blood Cells # 0.010^3/ul Sodium Level 143mmol/L Potassium Level 3.7mmol/L Chloride Level 108mmol/L Carbon Dioxide Level 24mmol/L Anion Gap 15 Blood Urea Nitrogen 11mg/dl Creatinine 0.64mg/dl Glucose Level 87mg/dl Calcium Level 8.4mg/dl Total Bilirubin 0.1mg/dl Direct Bilirubin 0.00mg/dl Indirect Bilirubin 0.1mg/dl Aspartate Amino Transf (AST/SGOT) 27IU/L Alanine Aminotransferase (ALT/SGPT) 43IU/L Alkaline Phosphatase 54IU/L Total Protein 7.3g/dl Albumin 4.7g/dl Globulin 2.60g/dl Albumin/Globulin Ratio 1.80 Lipase 113U/L Current Medications Medications (Trade) Dose Ordered Sig/Rebekah Route PRN Reason Start Time Stop Time Status Last Admin Dose Admin Sodium Chloride (NS) 1,000 ml @ 1,000 mls/hr Q1H STAT IV 08/07/16 09:47 08/07/16 10:46 DC 08/07/16 10:05 Ondansetron HCl (Zofran Inj) 4 mg ONCE STAT IV 08/07/16 09:47 08/07/16 09:48 DC 08/07/16 10:05 Ketorolac Tromethamine (Toradol) 30 mg ONCE STAT IV 08/07/16 09:47 08/07/16 09:48 DC 08/07/16 10:06 Tramadol HCl (Ultram) 50 mg ONCE ONCE PO 08/07/16 11:30 08/07/16 11:31 DC 08/07/16 11:09 Procedures/MDM Given duration of symptoms and IV was obtained. Patient was given 1 L normal saline IV. Patient was given Zofran form of grams IV and Toradol 30 mg IV as well as tramadol 50 mg p.o. for persistent headache. Patient had resolution of headache throughout the ED course. Patient has a hemoglobin of 9.9 and no leukocytosis. CMP is normal. HCG is negative. Patient presents with a history of vomiting diarrhea suspicious for viral gastroenteritis. She does have less of it headache improved with treatment here in the ED. Current signs and symptoms do not suggest meningitis, neurologic deficit, mass-effect, emergent causes of headache.. There is no signs of acute abdomen, appendicitis, hepatobiliary disease or symptoms of UTI. She will be treated with Zofran, Tylenol number 3 at home and further observation instructions for clear fluids. Is to follow-up with primary doctor this week return for abdominal pain, blood , vomiting despite treatment, new worsening symptoms otherwise allow 1-3 more days for viral illness to resolve. Departure Diagnosis: Primary Impression: Vomiting and diarrhea Additional Impression: Headache Headache type: unspecified Headache chronicity pattern: unspecified pattern Intractability: not intractable Qualified Code: R51 - Nonintractable headache, unspecified chronicity pattern, unspecified headache type Condition: Stable Patient Instructions: Self-Care for Headaches, Anemia, Iron Deficiency (Adult) , Vomiting And Diarrhea, Nonspecific (Adult) Additional Instructions: probablamente un virus que dura 2-4 victor. cheque otro elizabeth el proximo negrito para mas simptomas- vomito, dolor, jose daniel, problemas con respirando, o con fatima doctor primario. CONTINUA LLERO. SKINNY HERNANDEZ MD Aug 07, 2016 12:35
[2016-08-07 12:41] LABS: URINE BLOOD (Dip) POC Negative (NEGATIVE)
== END 2016-08-07 12:48 | disposition home or self-care (01) ==
LOC: FTE 09:24
DX: R11.10 Vomiting, unspecified (principal); R19.7 Diarrhea, unspecified
CPT/HCPCS: 36415; 80053; 81001; 83690; 85025; 96361; 96374; 96375; J1885; J2405; J7030; Z7502; Z7610; 81003

== ENCOUNTER 2016-09-24 09:08 | Emergency (ER) | payer OTHER ==
[~2016-09-24] VITALS: Ht 165.1 cm; Wt 101.5 kg
[~2016-09-24 09:08] MED LIST changes: +ACET1TAB40 PO; +ONDA8TAB14 PO
[2016-09-24 09:12] VITALS: Ht 165.1 cm; Wt 101.5 kg
[2016-09-24 09:36] LABS: URINE BLOOD (Dip) POC Negative (NEGATIVE)
[2016-09-24] MEDS ORDERED: FLUCONAZOLE 150 MG TAB PO ONE (10:30)
--- NOTE | 2016-09-24 10:36 | ERD ---
ER Documentation Chief Complaint Date/Time DATE: 09/24/16 TIME: 10:31 Chief Complaint Complains of vaginal discharge x 2 days ago with a headache HPI 41-year-old female is complaining of vaginal itching, discharge, and odor 2 days. Patient also reports occasional pelvic cramps. The discharge is yellow in color. She describes the discharge as having a "acidic" odor. Denies dysuria. Denies fever or chills. Patient is , in a monogamous relationship. ROS All systems reviewed and are negative except as per history of present illness. Medications Home Meds Active Scripts Acetaminophen with Codeine (Acetaminophen-Cod #3 Tablet) 1 Each Tablet, 1 TAB PO Q6H Y for PAIN, #12 TAB Prov:SKINNY HERNANDEZ MD 08/07/16 Ondansetron (Ondansetron Odt) 8 Mg Tab.rapdis, 8 MG PO Q6H Y for NAUSEA AND/OR VOMITING, #8 TAB Prov:SKINNY HERNANDEZ MD 08/07/16 Metronidazole* (Flagyl*) 500 Mg Tablet, 500 MG PO TID for 7 Days, TAB Prov:DANITZA COPELAND 05/31/16 Naproxen* (Naprosyn*) 500 Mg Tablet, 500 MG PO BID Y for PAIN AND/OR INFLAMMATION, #30 TAB Prov:DANITZA COPELAND 05/31/16 Nitrofurantoin Monohyd Macrocr* (Macrobid*) 100 Mg Capsr, 100 MG PO BID for 7 Days, CAP Prov:LINDA FRANKLIN MD 05/25/16 Reported Medications Omeprazole* (Omeprazole*) 10 Mg Capsule.dr, 10 MG PO DAILY, #30 CAP 05/31/16 Ibuprofen* (Ibuprofen*) 600 Mg Tablet, 600 MG PO Q6H Y for PAIN, TAB 05/31/16 Allergies Allergies: Coded Allergies: No Known Allergy (Unverified , 09/24/16) PMhx/Soc Medical and Surgical Hx: pt denies Medical Hx, pt denies Surgical Hx Hx Alcohol Use: Yes (social) Hx Substance Use: No Hx Tobacco Use: No Smoking Status: Never smoker Physical Exam Vitals Vital Signs Date Time Temp Pulse Resp B/P Pulse Ox O2 Delivery O2 Flow Rate FiO2 09/24/16 09:12 98.3 79 20 113/71 98 Physical Exam General: Well-developed, well-nourished, conscious and coherent, in no distress Skin: Warm and dry without rash, good texture and turgor Head: Normocephalic without evidence of trauma Eyes: Sclera and conjunctivae normal; pupils equal, round, and reactive to light; extraocular movements are intact Chest: Normal AP diameter. Good expansion without retractions. Nontender. Lungs are clear to auscultate bilaterally with good tidal volume Heart: Regular rate and rhythm. No murmur, rub, or gallops heard Pelvis: Nontender to palpation and stable to compression : External genitalia without lesions or masses, slightly erythematous. Vaginal vault has copious thick, white discharge. No fishy odor. Cervix normal , no cervical motion tenderness noted. Uterus nontender and normal size. No adnexal tenderness or masses noted. Extremities: Full range of motion. Good strength bilaterally. No clubbing, cyanosis, or edema. Peripheral pulses are intact. Sensation intact Neuro: Alert and oriented 4, GCS 15. Cranial nerves grossly intact. Motor and sensory exams nonfocal. Moves all extremities. Speech clear. Gait normal Results 24 hrs Laboratory Tests Test 09/24/16 09:43 Bedside Urine pH (LAB) 5.5 Bedside Urine Protein (LAB) Negative Bedside Urine Glucose (UA) Negative Bedside Urine Ketones (LAB) Negative Bedside Urine Blood Negative Bedside Urine Nitrite (LAB) Negative Bedside Urine Leukocyte Esterase (L Trace Current Medications Medications (Trade) Dose Ordered Sig/Rebekah Route PRN Reason Start Time Stop Time Status Last Admin Dose Admin Fluconazole (Diflucan) 150 mg ONCE ONCE PO 09/24/16 10:30 09/24/16 10:30 DC 09/24/16 10:22 Procedures/MDM Well-appearing 41-year-old female presented to ED with vaginal itching and discharge 2 days. Her symptoms and exam findings consistent with yeast vaginitis. Her urine dip and urine test or negative. I doubt UTI, ectopic , bacterial vaginosis, or sexually transmitted infections. Patient is given Diflucan 150 mg p.o. in the ED. Patient appears well, stable for discharge and outpatient management. Medical decision making shared with patient and family. Education provided to patient and family. Patient and family expressed understanding of the plan. Medications on discharge: None. Follow-up: Primary care provider in 2-3 days or return to ED if worse. Disclaimer: Inadvertent spelling and grammatical errors are likely due to EHR/ dictation software use and do not reflect on the overall quality of patient care. Also, please note that the electronic time recorded on this note does not necessarily reflect the actual time of the patient encounter. Departure Diagnosis: Primary Impression: Yeast vaginitis Condition: Good Patient Instructions: Vaginal Infection: Yeast (Candidiasis) Referrals: DOCTOR,NOT ON STAFF (PCP) [facility]) Usted se fitzgerald hecho un examen mdico de control que le indica que no est en mildred condicin que requiera tratamiento urgente en el Departamento de Emergencia. Un estudio ms profundo y el tratamiento de fatima condicin pueden esperar sin ningn riesgo hasta que usted sea atendida/o en el consultorio de fatima mdico o mildred cl shelley. Es responsabilidad suya arreglar mildred zaida para el seguimiento del cindy. MANEJO DE CONDICIONES NO URGENTES EN EL FUTURO 1) Si usted tiene un mdico de atencin primaria: Usted debera llamar a fatima mdico de atencin primaria antes de venir al departamento de emergencia. Despus de las horas de consultorio, fatima doctor o fatima asociado/a est disponible por telfono. El mdico o enfermero de nikki en el servicio telefnico puede asesorarle por wilfredo medio para atender el problema, o cindy contrario se puede programar mildred zaida. 2) Si usted no tiene un mdico de atencin primaria: Llame al mdico o clnica de referencia que aparece abajo autumn las horas de consultorio para hacer mildred zaida para que le vean. CLINICAS: [facility] [phone] [facility] [phone] [facility] [phone] [facility] [phone] [facility]. [place] [phone] [facility] [phone] [address] Additional Instructions: Llame al doctor MAANA y bethany mildred ZAIDA PARA DENTRO DE 2-3 THAYER.Dgale a la secretaria que nosotros le instruimos hacer esta zaida.Avise o llame si fatima condicin se empeora antes de la zaida. Regresa aqui si peor o no mejor. EL RODRÍGUEZ. FIGUEROA Sep 24, 2016 10:35
== END 2016-09-24 10:29 | disposition home or self-care (01) ==
LOC: FTE 09:08
DX: B37.3 Candidiasis of vulva and vagina (principal); R40.2412 Glasgow coma scale score 13-15, at arrival to emergency department; R10.2 Pelvic and perineal pain
CPT/HCPCS: 81003; Z7610; 99284

== ENCOUNTER 2017-03-13 20:54 | Emergency (ER) | END 2017-03-14 01:31 | disposition home or self-care (01) ==

== ENCOUNTER 2018-02-20 15:54 | Emergency (ER) | payer OTHER ==
[~2018-02-20] VITALS: Ht 172.7 cm; Wt 99.2 kg
[~2018-02-20 15:54] MED LIST changes: +FER325 PO; -NAPR-260 PO; +NAPR-985 PO
[2018-02-20 15:59] VITALS: Ht 172.7 cm; Wt 99.2 kg
[2018-02-20] MEDS ORDERED: KETOROLAC 60 MG INJ IM STA (20:06)
[2018-02-20] MEDS ORDERED: D-ME473S2 PO (20:42)
[2018-02-20] MEDS ORDERED: IBUP-1542 PO (20:42)
--- NOTE | 2018-02-20 20:50 | ERD ---
ER Documentation Chief Complaint Chief Complaint Complains of cough HPI 42-year-old female patient with no significant past medical history presents the ED complaining of a dry cough that started 4 days ago. Patient reports that she started taking NyQuil and DayQuil without any relief. States that she has some body aches, rhinorrhea, headache. Patient is eating appropriately, tolerating oral intake. Denies any fever, chills, nausea, vomiting, diarrhea, neck stiffness. ROS All systems reviewed and are negative except as per history of present illness. Medications Home Meds Active Scripts Ibuprofen* (Motrin*) 600 Mg Tab, 600 MG PO Q6, #30 TAB Prov:ERIN CAMPBELL PA-C 02/20/18 Dextromethorphan Hb-Promethazine Hcl* (Promethazine DM* Syrup) 473 Ml Syrup, 5 ML PO Q6 PRN for COUGH, #120 ML Prov:ERIN CAMPBELL PA-C 02/20/18 Ferrous Sulfate* (Ferrous Sulfate*) 325 Mg Tabec, 325 MG PO BID, #60 TAB Prov:STANFORD JALLOH NP 03/14/17 Acetaminophen with Codeine (Acetaminophen-Cod #3 Tablet) 1 Each Tablet, 1 TAB PO Q6H PRN for PAIN, #12 TAB Prov:SKINNY HERNANDEZ MD 08/07/16 Ondansetron (Ondansetron Odt) 8 Mg Tab.rapdis, 8 MG PO Q6H PRN for NAUSEA AND/OR VOMITING, #8 TAB Prov:SKINNY HERNANDEZ MD 08/07/16 Metronidazole* (Flagyl*) 500 Mg Tablet, 500 MG PO TID for 7 Days, TAB Prov:DANITZA COPELAND 05/31/16 Naproxen* (Naprosyn*) 500 Mg Tablet, 500 MG PO BID PRN for PAIN AND/OR INFLAMMATION, #30 TAB Prov:DANITZA COPELAND 05/31/16 Nitrofurantoin Monohyd Macrocr* (Macrobid*) 100 Mg Capsr, 100 MG PO BID for 7 Da ys, CAP Prov:LINDA FRANKLIN MD 05/25/16 Reported Medications Omeprazole* (Omeprazole*) 10 Mg Capsule.dr, 10 MG PO DAILY, #30 CAP 05/31/16 Ibuprofen* (Ibuprofen*) 600 Mg Tablet, 600 MG PO Q6H PRN for PAIN, TAB 05/31/16 Allergies Allergies: Coded Allergies: No Known Allergy (Unverified , 09/24/16) PMhx/Soc Medical and Surgical Hx: pt denies Surgical Hx History of Surgery: No Anesthesia Reaction: No Hx Neurological Disorder: No Hx Respiratory Disorders: No Hx Cardiac Disorders: No Hx Psychiatric Problems: No Hx Miscellaneous Medical Probl: Yes (gastritis) Hx Alcohol Use: No Hx Substance Use: No Hx Tobacco Use: No Smoking Status: Never smoker FmHx Family History: No diabetes, No coronary disease Physical Exam Vitals Vital Signs Date Temp Pulse Resp B/P (MAP) Pulse Ox O2 O2 Flow FiO2 Time Delivery Rate 02/20/18 98.0 86 20 115/76 98 15:59 (89) Physical Exam Const: Nxr-yrq-osoztiviy, well-nourished. In no acute distress. Head: Atraumatic, normocephalic Eyes: Normal Conjunctiva without injection. No purulent discharge. PERRL. EOMI ENT: Normal external ear. Ear canal without erythema. Tympanic membrane pearly gresham without effusion or bulging. Nasal canal clear with normal turbinates. Moist oropharynx without tonsillar exudates. Non-erythematous pharynx. Uvula midline. No drooling. No trismus. Neck: Full range of motion. No meningismus. No cervical lymphadenopathy. Resp: Clear to auscultation bilaterally. No wheezing, rhonchi, rales, or crackl es. No accessory muscle use. No retractions. Cardio: Regular rate and rhythm. No murmurs, rubs or gallops. Abd: Soft, non tender, non distended. Normal bowel sounds. No palpable masses. No rebound tenderness. No guarding. Skin: No petechiae or rashes Back: No midline tenderness. No CVA tenderness. Ext: No cyanosis, or edema. Neur: Awake and alert. Psych: Normal Mood and Affect Results 24 hrs Laboratory Tests Test 02/20/18 20:16 POC Beta HCG, Qualitative NEGATIVE Current Medications Medications Dose Sig/Rebekah Start Time Status Last (Trade) Ordered Route PRN Stop Time Admin Dose Reason Admin Ketorolac 60 mg ONCE STAT 02/20/18 DC 02/20/18 Tromethamine IM 20:06 02/20/18 20:26 (Toradol) 20:07 Procedures/MDM 42-year-old female patient with no significant past medical history presents to the ED complaining of dry cough, rhinorrhea, body aches. Patient is afebrile and nontoxic-appearing. This patient presents to the ED with symptoms consistent with a viral acute upper respiratory infection. Patient's physical exam include lungs which were clear to auscultation and a normal pulse oximetry. There is a low suspicion for pneumonia, pneumothorax, mononucleosis, pulmonary embolism, epiglottitis, otitis media, otitis externa, viral/strep pharyngitis, sinusitis, myocarditis, pericarditis, endocarditis, peritonsillar abscess, mastoiditis, retropharyngeal abscess, meningitis, sepsis, acute abdomen or other emergent conditions. Fluids, rest, and symptomatic treatment are recommended for the management of patient's symptoms. Diagnosis: Cough Discharge medications: Promethazine DM, Ibuprofen Patient was instructed to return to the ED for any new or worsening symptoms. They should otherwise follow up with the primary care provider within 2-3 days. The patient's questions were answered at the time of discharge. Patient understood and agreed with discharge management. Departure Diagnosis: Primary Impression: Cough Condition: Stable Patient Instructions: Viral Syndrome (Child) Referrals: [facility]) Usted se fitzgerald hecho un examen mdico de control que le indica que no est en mildred condicin que requiera tratamiento urgente en el Departamento de Emergencia. Un estudio ms profundo y el tratamiento de fatima condicin pueden esperar sin ningn riesgo hasta que usted sea atendida/o en el consultorio de fatima mdico o mildred clnica. Es responsabilidad suya arreglar mildred zaida para el seguimiento del cindy. MANEJO DE CONDICIONES NO URGENTES EN EL FUTURO 1) Si usted tiene un mdico de atencin primaria: Usted debera llamar a fatima mdico de atencin primaria antes de venir al departamento de emergencia. Despus de las horas de consultorio, fatima doctor o fatima asociado/a est disponible por telfono. El mdico o enfermero de nikki en el servicio telefnico puede asesorarle por wilfredo medio para atender el problema, o cindy contrario se puede programar mildred zaida. 2) Si usted no tiene un mdico de atencin primaria: Llame al mdico o clnica de referencia que aparece abajo autumn las horas de consultorio para hacer mildred zaida para que le vean. CLINICAS: [facility] [phone] [facility] [phone] [facility] [phone] [place] [id number] [phone] [facility] [phone] [address] [facility] [phone] [address] [facility]. [facility] () Usted se fitzgerald hecho un examen mdico de control que le indica que no est en mildred condicin que requiera tratamiento urgente en el Departamento de Emergencia. Un estudio ms profundo y el tratamiento de fatima condicin pueden esperar sin ningn riesgo hasta que usted sea atendida/o en el consultorio de fatima mdico o mildred clnica. Es responsabilidad suya arreglar mildred zaida para el seguimiento del cindy. MANEJO DE CONDICIONES NO URGENTES EN EL FUTURO 1) Si usted tiene un mdico de atencin primaria: Usted debera llamar a fatima mdico de atencin primaria antes de venir al departamento de emergencia. Despus de las horas de consultorio, fatima doctor o fatima asociado/a est disponible por telfono. El mdico o enfermero de nikki en el servicio telefnico puede asesorarle por wilfredo medio para atender el problema, o cindy contrario se puede programar mildred zaida. 2) Si usted no tiene un mdico de atencin primaria: Llame al mdico o condado institucions de referencia que aparece abajo autumn las horas de consultorio para hacer mildred zaida para que le vean. SI USTED NO PUEDE PAGAR PARA MAGNO UN MEDICO puede ir a: [facility] [address] [place] [address] [facility] [address] [place] [address] [facility] [address] [place] [address] [facility]A [facility] [address] [place], [place] [id number] Additional Instructions: Llame al doctor MAANA y bethany mildred ZAIDA PARA DENTRO DE 2-3 THAYER.Dgale a la secretaria que nosotros le instruimos hacer esta zaida.Avise o llame si fatima condicin se empeora antes de la zaida. Regresa aqui si peor o no mejor. ERIN CAMPBELL PA-C Feb 20, 2018 20:50
[2018-02-20 21:00] VITALS: RESP 18
[2018-02-20] MEDS ORDERED: ONDANSETRON (ODT) 4 MG TAB ODT STA (21:12)
[2018-02-20 21:35] VITALS: BP 112/70; PULSE 87
== END 2018-02-20 21:40 | disposition home or self-care (01) ==
LOC: FTE 15:54
DX: R05 Cough (principal)
CPT/HCPCS: 81025; 96372; J1885; Z7502; Z7610